=== PATIENT | female | born 1980 | race Hispanic/Latino ===

== ENCOUNTER → 2016-12-11 | Outpatient (REF) | payer MEDICAID ==
[2016-12-12 09:07] LABS: ALBUMIN 3.8 g/dL (3.4-5.0); ALKALINE PHOSPHATASE 133 U/L (38-126); ANION GAP 13.7 MEQ/L (3-15); BUN/CREATININE RATIO 18 (10-20); CALCULATED IONIZED CALCIUM 3.8 mg/dL (3.8-4.6)
== END ==
LOC: LAB 15:53
PROVIDERS: ATTEND Physician Assistant Surgical
DX: E03.8 Other specified hypothyroidism (principal); E83.51 Hypocalcemia
CPT/HCPCS: 80053; 84443